=== PATIENT | male | born 1975 | race African-American/Black ===

== ENCOUNTER 2019-05-10 23:01 | Emergency (ER) | payer SELFPAY ==
[~2019-05-10 23:01] MED LIST: Dextrose 50% Abboject 50 ML SYRINGE ONE; EPINEPHRINE IN SOD CHLOR,ISO 1 MG/10 ML SYRINGE IV ONE; Sodium Bicarb 50 MEQ/50 ML Abboject 8.4% SYRINGE ONE
== END 2019-05-10 23:12 | disposition expired ==
LOC: ERS 23:01 → EDBD 23:01 → ERS 23:12
DX: I46.9 Cardiac arrest, cause unspecified (principal)
CPT/HCPCS: 36416; 92950; 96374; 96375